=== PATIENT | male | born 1985 | race Caucasian/White ===

== ENCOUNTER 2025-04-14 04:58 | Emergency (ER) | payer OTHER ==
[~2025-04-14] VITALS: Ht 170.2 cm; Wt 77.0 kg
[2025-04-14 05:13] VITALS: O2SAT 98
[2025-04-14] MEDS ORDERED: IBUP-2028 PO (05:42)
[2025-04-14] MEDS: ACETAMINOPHEN 325MG TABLET PO ONE (06:10)
[2025-04-14] MEDS: IBUPROFEN 400MG TABLET PO ONE (06:11)
[2025-04-14 06:15] VITALS: BP 133/87; PULSE 84; RESP 18; TEMP 36.4; O2SAT 99
== END 2025-04-14 06:40 | disposition home or self-care (01) ==
LOC: ER 04:58
DX: R10.9 Unspecified abdominal pain (principal); Z88.0 Allergy status to penicillin; Z79.1 Long term (current) use of non-steroidal anti-inflammatories (NSAID)
CPT/HCPCS: 71045; 93005; 99283